=== PATIENT | male | born 1935 | race African-American/Black ===

== ENCOUNTER 2018-09-15 18:14 | Emergency (ER) | payer MEDICARE ==
[~2018-09-15] VITALS: Ht 188 cm; Wt 91.0 kg
[2018-09-15] MEDS ORDERED: LABETALOL 5MG/ML SYR 20 MG/4 ML SYRINGE IV ONE (18:45)
[2018-09-15 19:29] LABS: BASOPHILS % 1.2 % (0.0-2.0); EOSINOPHILS % 4.4 % (0.0-5.0); HEMATOCRIT. 48.6 % (42.0-52.0); HEMOGLOBIN. 15.8 g/dL (14.0-18.0); MEAN CORPUSCULAR HEMOGLOBIN 27.8 pg (28.0-32.0); MEAN CORPUSCULAR VOLUME 85.9 fL (80.0-94.0); MONOCYTES % 8.9 % (2.0-8.0); NEUTROPHILS % 31.5 % (40.0-76.0); PLATELET 193 x1000/uL (130-400); RED BLOOD CELL COUNT 5.66 mill/uL (4.7-6.1); RED CELL DISTRIBUTION WIDTH 15.7 % (11.6-14.6)
[2018-09-15 19:32] LABS: CHLORIDE 105 mEq/L (98-107)
[2018-09-15] MEDS ORDERED: LABETALOL 5MG/ML SYR 20 MG/4 ML SYRINGE IV NR (21:15)
[2018-09-15 22:56] LABS: CLARITY URINE CLEAR (CLEAR); COLOR URINE YELLOW (YELLOW); KETONES URINE TRACE (NEGATIVE); LEUKOCYTE ESTERASE URINE NEGATIVE (NEGATIVE); NITRITE URINE NEGATIVE (NEGATIVE); OCCULT BLOOD URINE NEGATIVE (NEGATIVE); PROTEIN URINE NEGATIVE (NEGATIVE)
[2018-09-15] MEDS ORDERED: CLONIDINE 0.2MG TABLET PO ONE (23:45)
[2018-09-16 02:16] VITALS: BP 115/75
== END 2018-09-16 02:35 | disposition short-term general hospital (02) ==
LOC: ER 18:14 → CANBEDREQ 09-16 03:53
DX: R79.89 Other specified abnormal findings of blood chemistry (principal); I16.0 Hypertensive urgency; N28.9 Disorder of kidney and ureter, unspecified
CPT/HCPCS: 36415; 71045; 80053; 81003; 83880; 84484; 85025; 93005; 96374; 99285; J3490